=== PATIENT | male | born 1980 | race Caucasian/White ===

== ENCOUNTER 2025-07-11 08:39 | Emergency (ER) | payer BC, SELFPAY ==
[2025-07-11 08:48] VITALS: BP 150/91; PULSE 86; RESP 17; TEMP 36.7; O2SAT 96; BMI 23.7
--- NOTE | 2025-07-11 08:49 | XR_ITS ---
Examination: CT abdomen and pelvis without contrast. Coronal 3-D reconstructions. Sagittal 2-D reconstructions. Date and time of exam: July 11, 2025, 0855 hours, comparison December 02, 2011 INDICATIONS: Left-sided flank pain abdominal pain and bloody stools today CTDI: vol (mGy): 6.60 DLP: (mGycm): 115 Technique: Axial images of the abdomen have been obtained, 3 mm slice thickness Intravenous contrast material has not been administered. Low dose protocols were performed. One or more of the following dose reduction techniques were used; automated exposure control, adjustment of the mA and/or KV according to patient size, use of iterative reconstruction technique. Findings: No focal liver or splenic lesions Absent gallbladder No pancreatic or adrenal mass No renal or ureteral calculi, no hydronephrosis Aorta normal size Absent appendix Mild small bowel ileus No diverticulitis or nonspecific colitis on this noncontrast study Normal seminal vesicles No significant prostatomegaly Prominent osteopenia with chronic osteoporotic compression T12 Healed right femoral shaft fracture IMPRESSION: No renal or ureteral calculi, no hydronephrosis Absent appendix No diverticulitis or nonspecific colitis on this noncontrast study
--- NOTE | 2025-07-11 08:49 | PD.EDRME ---
Rapid Medical Screening Exam RME Arrival date/time: 07/11/25 08:39 45-year-old male presents to the Emergency Department today for complaints of rectal bleeding and abdominal pain Chief Complaint: GI Bleed Vital signs: Vital Signs Temperature 98.1 F 07/11/25 08:48 Pulse Rate 86 07/11/25 08:48 Respiratory Rate 17 07/11/25 08:48 Blood Pressure 150/91 H 07/11/25 08:48 Pulse Oximetry (%) 96 07/11/25 08:48 Oxygen Delivery Method Room Air 07/11/25 08:48
[2025-07-11 10:00] LABS: Basophils # (Auto) 0.1 Thou/mm3 (0.0-0.2); Basophils % (Auto) 1 % (0-2.5); Eosinophils # (Auto) 0.1 Thou/mm3 (0.0-0.5); Eosinophils % (Auto) 2 % (0-10); Hematocrit 44.3 % (41.0-53.0); Hemoglobin 15.8 g/dL (13.5-16.0); Immature Granulocytes Auto 0.01 Thou/mm3 (0.00-0.00); Lymphocytes # (Auto) 1.7 Thou/mm3 (1.0-4.8); Lymphocytes % (Auto) 24 % (10-50); Mean Corpuscular HGB Conc 35.7 g/dl (31.0-37.0); Mean Corpuscular Hemoglobin 32.6 pg (25.0-35.0); Mean Corpuscular Volume 91 fL (80-100); Monocytes # (Auto) 0.6 Thou/mm3 (0.0-0.8); Monocytes % (Auto) 8 % (0-12); Neutrophils # (Auto) 4.7 Thou/mm3 (1.8-7.7); Neutrophils % (Auto) 65 % (37-80); Nucleated Red Blood Cell # 0.00 Thou/mm3 (0.00-0.00); Nucleated Red Blood Cell % 0 /100 WBC (0); Platelet Count 226 Thou/mm3 (140-440); RDW Standard Deviation 39.5 fL (35.1-43.9); Red Blood Count 4.85 Miln/mm3 (4.50-5.90); White Blood Count 7.2 Thou/mm3 (3.8-10.6)
[2025-07-11 10:11] LABS: Collection Type, Urine Clean Catch; Squamous Epithelial Cell,Urine 0 /hpf (0-5)
[2025-07-11 10:16] LABS: INR 1.0 (0.9-1.3); Partial Thromboplastin Time 25.7 Seconds (22.0-36.0); Prothrombin Time 10.3 Seconds (9.0-12.2)
[2025-07-11 10:20] LABS: Alanine Aminotransferase 37 U/L (10-49); Albumin, Serum 5.0 gm/dL (3.5-5.0); Albumin/Globulin Ratio 2.5 (1.2-2.2); Alkaline Phosphatase 59 U/L (46-116); Anion Gap 10 (7-16); Aspartate Amino Transferase 23 U/L (0-34); BUN/Creatinine Ratio 10 Ratio (12-20); Bilirubin,Total 0.4 mg/dL (0.3-1.2); Blood Urea Nitrogen 8 mg/dL (9-23); Calcium 8.9 mg/dL (8.3-10.6); Calcium (Corrected) 8.9 mg/dL (8.5-10.1); Carbon Dioxide 24.9 mMol/L (20.0-31.0); Chloride 106 mMol/L (98-107); Creatinine (Component) 0.8 mg/dL (0.6-1.3); Estimated Creatinine Clearance 125.3 mL/min (>60); Globulin 2.0 gm/dL (2.3-3.5); Glucose 93 mg/dL (74-106); Lipase 36 U/L (12-53); Osmolality,Calculated 279 (275-295); Potassium 4.0 mMol/L (3.4-5.1); Sodium 141 mMol/L (136-145); Total Protein 7.0 gm/dL (5.7-8.2); eGFR > 60 See Note
[2025-07-11 10:40] LABS: Bacteria,Urine Rare; Bilirubin,Urine Negative (Negative); Blood,Urine Negative (Negative); Clarity,Urine Clear (Clear/Hazy); Color,Urine Lt-Yellow (Lt Yel-Yel); Culture Indicated,Urine Not Indicated; Glucose, Urine Negative (Negative); Ketones,Urine Negative (Negative); Leukocyte Esterase,Urine Negative (Negative); Nitrite,Urine Negative (Negative); PH,Urine 6.0 (5.0-7.0); Protein,Urine Negative (Neg - Trace); RBC,Urine 3 /hpf (0-3); Specific Gravity,Urine 1.019 (1.001-1.035); Urobilinogen,Urine Negative mg/dL (0.0-1.0); WBC,Urine 1 /hpf (0-5)
--- NOTE | 2025-07-11 11:50 | PD.EDGIBLD ---
ED GI Bleed RME/HPI General Chief complaint: GI Bleed Stated complaint: BM this morning with red blood Time Seen by Provider: 07/11/25 11:49 Arrival date/time: 07/11/25 08:39 Mode of arrival: ambulatory Limitations: no limitations RME / HPI RME / HPI Narrative: 07/11/25 08:39 45-year-old male presents to the Emergency Department today for complaints of rectal bleeding and abdominal pain Dr. Rodriguez evaluation Patient is a 45-year-old male with medical history notable for GERD this in the emergency department concerns for bright red blood per rectum. Patient does not have any allergies to medications. Patient states that he has had hemorrhoids for a while, many years. Patient has had multiple endoscopies colonoscopies, capsule endoscopies for evaluation of his intermittent episodes of rectal bleeding. He recently saw his providers, was given suppositories which have been working. Denies fevers, chills, nausea, vomiting dysuria hematuria Related Data Home Medications ?Medication ?Instructions ?Recorded ?Confirmed acetaminophen 325 mg capsule 325 mg PO Q6H PRN Pain 12/16/19 12/16/19 (Tylenol) omeprazole 20 mg tablet,delayed 40 mg PO QDAY 12/16/19 12/16/19 release tramadol 50 mg tablet 50 mg PO Q6H PRN Pain 12/16/19 12/16/19 Previous Rx's ?Medication ?Instructions ?Recorded bisacodyl 10 mg rectal suppository 10 mg WA QDAY PRN constipation #5 07/11/25 (Laxative (bisacodyl)) ea polyethylene glycol 3350 17 4 g PO QDAY #119 grams 07/11/25 gram/dose oral powder (Miralax) Allergies Allergy/AdvReac Type Severity Reaction Status Date / Time No Known Allergies Allergy Verified 07/11/25 08:43 ED Exam General Limitations: Present no limitations General appearance: Present alert and in no apparent distress Head Head exam: Present atraumatic and normocephalic Eye Eye exam: Present normal appearance and PERRL ENT ENT exam: Present normal exam and normal oropharynx Neck Neck exam: Present normal inspection and full ROM Chest Chest inspection: Present normal inspection and symmetric chest wall rise Respiratory Respiratory exam: Absent respiratory distress Cardiovascular Cardiovascular exam: Present regular rate and normal rhythm Abdominal Exam Abdominal exam: Present soft; Absent distention, tenderness or guarding Extremities Exam Extremities exam: Present normal inspection Neurological Exam Neurological exam: Present alert and other Psychiatric Psychiatric exam: Present normal affect Course Quality Measures none Orders Category Date Time Status CT abdomen pelvis wo con Stat Exams 07/11/25 08:49 Completed CBC Stat Lab 07/11/25 09:46 Completed Comprehensive Metabolic Panel Stat Lab 07/11/25 09:46 Completed Lipase Stat Lab 07/11/25 09:46 Completed Partial Thromboplastin Time Stat Lab 07/11/25 09:46 Completed Prothrombin Time with INR Stat Lab 07/11/25 09:46 Completed UA, C/S IF [Urinalysis, C/S if Indicated] Stat Lab 07/11/25 09:55 Completed Magnesium Citrate Liqd [Citrate of Magnesia Liqd] Med 07/11/25 12:05 Discontinued 300 ml PO X1 ONE Vital Signs Vital signs: Vital Signs Temperature 98.1 F 07/11/25 08:48 Pulse Rate 86 07/11/25 08:48 Respiratory Rate 17 07/11/25 08:48 Blood Pressure 150/91 H 07/11/25 08:48 Pulse Oximetry (%) 96 07/11/25 08:48 Oxygen Delivery Method Room Air 07/11/25 08:48 GI Bleed MDM Narrative MDM Narrative:: Patient is a 45-year-old male is in the emerged from with concerns for abdominal discomfort and bright red blood per rectum. Vital signs and exam as listed. Patient was evaluated by prior provider. Ordered labs CT offered medication for symptom relief. Concern for hemorrhoid, gastritis, ulceration, vascular malformation among others. Labs without any acute hematologic abnormality. Patient hemoglobin is 15.8, platelets 226. No leukocytosis, no left shift coags normal. No significant acute electrolyte nor metabolic derangements. No transaminitis, urinalysis with 3 red blood cells 1 white blood cell, negative nitrite negative leuk esterase. Not infected. CT abdomen pelvis without any acute abnormalities however patient does have significant stool burden in the descending colon. 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 I discussed with him and his at length how exercise, eating fruits vegetables leafy greens, and having a good bowel regimen for home will help him not only with his left-sided abdominal pain, constipation as well as with his hemorrhoids. Patient in agreement. Also advised patient on sitz bath On reevaluation patient hemodynamically stable not distressed, symptoms well-controlled. Will discharge to home with recommendation that he follow-up with his primary care doctor as well as request a colonoscopy through a steam heating installer. Close return precautions provided. Patient data External records reviewed:: [facility] previous records Clinical information provided by:: patient Social determinants that could affect healthcare access:: none Patient has the following chronic illnesses:: None How is presenting disease/condition affected by chronic disease/condition?: no chronic disease Evaluation data The following diagnostics were reviewed and interpreted by me:: lab results and radiology exam(s) Lab and/or radiology exams considered but not ordered:: None Interpretation Summary: See MDM Medications / Prescriptions Medications or Prescriptions considered but not ordered:: None Medication administrations:: Medication Administration History Discontinued Medications Magnesium Citrate (Magnesium Citrate 300 Ml Btl) 300 ml PO X1 ONE Stop: 07/11/25 12:06 Last Admin: 07/11/25 12:27 Dose: 300 ml Documented By: See above if any Consultations Consultation(s) initiated? (list below): No Diagnosis GI bleed differential diagnosis: other Most likely diagnosis given after review of the tests above:: Bright red blood per rectum, constipation, hemorrhoids Admission Indicated Admission indicated?: not indicated Admission Request Was there a request for admission?: No Disposition Plan Disposition Plan: Discharge Discharge Attestation Discharge Attestation: The patient and all family members were given an opportunity to ask questions and understood the discharge instructions. Discharge instructions specifically effects, indications for sooner follow up or return to the emergency department, and the expected course of current diagnosis. Patient condition: Stable Discharge Plan Plan Patient Disposition: HOME (Self Care) Prescriptions/Referrals Prescriptions/Med Rec: New polyethylene glycol 3350 [Miralax] 17 gram/dose powder 4 g PO QDAY Qty: 119 0RF bisacodyl [Laxative (bisacodyl)] 10 mg suppository 10 mg WA QDAY PRN (Reason: constipation) Qty: 5 0RF No Action tramadol 50 mg Tablet 50 mg PO Q6H PRN (Reason: Pain) acetaminophen [Tylenol] 325 mg Capsule 325 mg PO Q6H PRN (Reason: Pain) omeprazole 20 mg tablet,delayed release (DR/EC) 40 mg PO QDAY Patient Comments: TAKE 2 TABLET BY MOUTH EVERY DAY Referrals: Loree Tinajero PA-C [Primary Care Provider] - In 1 week Problem List Clinical Impression: Bright red blood per rectum, Constipation Patient/Caregiver Discharge Instructions Education Materials: Treating Constipation Additional Instructions: Please follow-up with your primary care doctor within 1 to 2 days. Please follow-up with steam heating installer within the upcoming week. It important that you modify your diet, to increase fruits vegetables leafy green, to eat these foods daily to help with intestinal transit which will ultimately help you with your symptoms of left-sided abdominal pain and hemorrhoids. Please try to take multiple breaks throughout the day to walk which also helps with intestinal transit. Return immediately if you have worsening symptoms or new symptoms of concern Print Language: Albanian Stand Alone Forms: [employer] Award Info., Work/School Release, Patient Portal Info Letter
[2025-07-11] MEDS: MAGNESIUM CITRATE 300 ML BTL PO (12:27)
== END 2025-07-11 13:17 | disposition home or self-care (01) ==
PROVIDERS: Nurse Practitioner Primary Care; Emergency Provider Emergency Medicine; PCP Physician Assistant
DX: K59.00 Constipation, unspecified (principal); K92.2 Gastrointestinal hemorrhage, unspecified
CPT/HCPCS: 36415; 74176; 80053; 81001; 83690; 85025; 85610; 85730; 99284; A9270